=== PATIENT | female | born 1995 | race Caucasian/White ===

== ENCOUNTER 2019-05-07 16:29 | Emergency (ER) | payer SELFPAY ==
[~2019-05-07] VITALS: Ht 162.6 cm; Wt 66.9 kg
[2019-05-07 16:33] VITALS: BP 142/68; PULSE 89; RESP 16; Ht 162.6 cm; Wt 66.9 kg
--- NOTE | 2019-05-07 17:57 | ERD ---
ER Documentation Chief Complaint Chief Complaint L arm, R neck bug bite this AM: pain, swelling. HPI This is a 23-year-old female patient who presents emergency room with complaint of redness and swelling to right neck and left upper arm after awakening this morning, appears to be some type of insect bite,+erythema, +tender, +swelling. Denies fevers or malaise. Allergies or prior history of the same. ROS All systems reviewed and are negative except as per history of present illness. Medications Home Meds Active Scripts Hydrocortisone* Topical (Hydrocortisone* Topical) 2.5%-28.3 Gm Cream..g., 1 APPLIC TOP BID for itching for 10 Days, #21 G Prov:IAN CAMARA NP 05/07/19 Prednisone* (Prednisone*) 20 Mg Tab, 40 MG PO DAILY for 3 Days, #3 TAB Prov:IAN CAMARA NP 05/07/19 Famotidine* (Pepcid*) 20 Mg Tablet, 20 MG PO BID for 3 Days, #6 TAB Prov:IAN CAMARA NP 05/07/19 Diphenhydramine Hcl* (Benadryl*) 25 Mg Cap, 25 MG PO Q6 for 3 Days, #20 CAP Prov:IAN CAMARA NP 05/07/19 Allergies Allergies: Coded Allergies: No Known Allergy (Unverified , 05/07/19) PMhx/Soc Medical and Surgical Hx: pt denies Medical Hx FmHx Family History: No diabetes, No coronary disease, No other Physical Exam Vitals Vital Signs Date Temp Pulse Resp B/P (MAP) Pulse Ox O2 O2 Flow FiO2 Time Delivery Rate 05/07/19 98.6 89 16 142/68 99 16:33 (92) Physical Exam Const: No acute distress Head: Atraumatic Eyes: Normal Conjunctiva, PERRL ENT: Normal External Ears, Nose and Mouth. Pharynx pink, no lesions or exudate, no swelling. Neck: Full range of motion. No meningismus. No lymphadenopathy. Resp: Clear to auscultation bilaterally, no wheezing, no stridor Cardio: Regular rate and rhythm, no murmurs Abd: Soft, non tender, non distended. Normal bowel sounds Skin: No petechiae, Right distal neck with 2 target lesions, +swelling, +erythema, +pruritic. Left upper arm with 3 target lesions, large area of erythema, +induration, no fluctuance, +tender Back: No midline or flank tenderness Ext: No cyanosis, or edema Neur: Awake and alert, clear speech, steady gait Psych: Normal Mood and Affect Results 24 hrs Current Medications Medications Dose Sig/Sabrina Start Time Status Last (Trade) Ordered Route PRN Stop Time Admin Dose Reason Admin 25 mg ONCE ONCE 05/07/19 DC 05/07/19 Diphenhydrami PO 18:00 05/07/19 18:20 ne HCl 18:01 (Benadryl) Famotidine 20 mg ONCE ONCE 05/07/19 DC 05/07/19 (Pepcid) PO 18:00 05/07/19 18:20 18:01 Prednisone 60 mg ONCE ONCE 05/07/19 DC 05/07/19 (Prednisone) PO 18:00 05/07/19 18:19 18:01 Ceftriaxone 1 gm ONCE ONCE 05/07/19 DC 05/07/19 Sodium IM 18:00 05/07/19 18:20 (Rocephin) 18:01 Lidocaine 20 ml ONCE ONCE 05/07/19 DC 05/07/19 (Xylocaine SC 18:00 05/07/19 18:20 1% (Mdv) 20 18:01 ml) Procedures/MDM PROCEDURES/MDM -Medications: Benadryl, Pepcid, prednisone Patient tolerated medication well with no adverse reactions. MDM: This 23-year-old female patient presents to the emergency room with apparent insect bites to her right neck and left upper arm. Patient awoke this morning with redness, swelling, tenderness and states symptoms have worsened throughout the day. Patient is otherwise well-appearing, no malaise, NAD. No nausea or vomiting pain, no musculoskeletal pain. Allergic response to insect bite will be treated routinely with prednisone, Benadryl, Pepcid. Area of erythema concerning for possible development of cellulitis and patient will be covered with Rocephin today and given strict instructions to return to emergency room if redness and swelling do not decrease in the next 24 hours. Areas of erythema marked with skin marker. Patient given instructions on use of cool compress and medication management. DISPOSITION and PLAN: Allergic response to insect bite RX: Benadryl, prednisone, Pepcid, hydrocortisone The patient has been discharge home to follow-up with community physician. Departure Diagnosis: Primary Impression: Insect bite Encounter type: initial encounter Site of insect bite: upper arm Laterality: left Qualified Codes: S40.862A - Insect bite (nonvenomous) of left upper arm, initial encounter; W57.XXXA - Bitten or stung by nonvenomous insect and other nonvenomous arthropods, initial encounter Condition: Stable IAN CAMARA NP May 07, 2019 17:57
[2019-05-07] MEDS ORDERED: DIPHENHYDRAMINE 25 MG CAP PO ONE (18:00)
[2019-05-07] MEDS ORDERED: predniSONE 20 MG TAB PO ONE (18:00)
[2019-05-07] MEDS ORDERED: BEN25 PO (18:00)
[2019-05-07] MEDS ORDERED: LIDOCAINE 1% (MDV) 20 ML INJ SC ONE (18:00)
[2019-05-07] MEDS ORDERED: HC30CR25 TOP (18:00)
[2019-05-07] MEDS ORDERED: PRED20TA PO (18:00)
[2019-05-07] MEDS ORDERED: FAMOTIDINE 20 MG TAB PO ONE (18:00)
[2019-05-07] MEDS ORDERED: FAMO-96 PO (18:00)
[2019-05-07] MEDS ORDERED: CEFTRIAXONE 1 GM INJ IM ONE (18:00)
== END 2019-05-07 18:52 | disposition home or self-care (01) ==
LOC: FTE 16:29
DX: S40.862A Insect bite (nonvenomous) of left upper arm, initial encounter (principal); S10.86XA Insect bite of other specified part of neck, initial encounter; W57.XXXA Bitten or stung by nonvenomous insect and other nonvenomous arthropods, initial encounter; Y92.9 Unspecified place or not applicable
CPT/HCPCS: 96372; 99284; J0696; J7512